=== PATIENT | male | born 1970 | race Two or more races ===

== ENCOUNTER 2025-08-11 15:43 | Emergency (ER) | payer MEDICAID, OTHER ==
[~2025-08-11] VITALS: Ht 185.4 cm; Wt 115.0 kg
[2025-08-11 16:00] VITALS: PULSE 110; RESP 20; O2SAT 96
[2025-08-11] MEDS: SODIUM CHLORIDE 0.9% 1,000 ML IV ONE (16:15)
[2025-08-11 16:17] VITALS: TEMP 98.6
[2025-08-11 16:22] LABS: Urine Protein, UAD TRACE (Negative)
[2025-08-11 16:39] LABS: Hematocrit 47.1 % (41.0-53.0); Hemoglobin 15.7 g/dL (13.5-17.5); Mean Corpuscular Hemoglobin 29.2 pg (28.0-32.0); Mean Corpuscular Volume 87.7 fL (80.0-100.0); Nucleated Red Blood Cells % 0.0 %
[2025-08-11 16:55] LABS: Albumin 4.3 g/dL (3.2-4.8); Anion Gap 11 (5-15); BUN/Creatinine Ratio 12.4 (10.0-20.0); Bilirubin, Total 0.7 mg/dL (0.2-1.0); Blood Urea Nitrogen 17 mg/dL (9-23); Calcium 9.2 mg/dL (8.7-10.4); Carbon Dioxide 24 mmol/L (20-31); Glucose 84 mg/dL (74-106); Potassium 4.1 mmol/L (3.5-5.1); Sodium 144 mmol/L (136-145); Total Protein 7.4 g/dL (5.7-8.2)
[2025-08-11 16:56] LABS: Alanine Aminotransferase 44 U/L (7-40); Alkaline Phosphatase 123 U/L (46-116); Chloride 109 mmol/L (98-107); Lipase 54 U/L (12-53)
--- NOTE | 2025-08-11 17:40 | ED.PDOC ---
History of Present Illness HPI Comments 54 y/o obese M is BIBA for c/c of syncope. Per EMS personnel report, patient was outdoors hiking when he passed out after running out of water and forgetting to carry extra, earlier, today. Patient received fluids en route as he was airlifted and arrived hypotensive to ED. No further acute symptoms reported at this time. Patient was not altered and states good improvement of symptoms at time of evaluation. Patient was tachycardic at arrival. Chief Complaint: Syncope Time Seen by MD: 16:00 Reviewed Notes: Nurses Notes, Field Marketing Representative Notes, Medications, Allergies Allergies: Coded Allergies: NO KNOWN ALLERGIES (Unverified , 08/11/25) Information Source: Patient, Emergency Med Personnel Mode of Arrival: EMS Severity: Moderate Timing: Hours Duration: Since onset Prehospital treatment: 12 Lead EKG, Tax Lawyer, IVF Past Medical History PAST MEDICAL HISTORY: Denies Surgical History: Denies all surgeries Family History Family History: Reviewed,noncontributory to illness, No family hx of Cancer, No family hx of DM, No family hx of Heart esther, No family hx of HTN, No family hx ofKidney esther, No family hx of Liver esther, No family hx of Lung esther, No family hx of Stroke Social History Smoker: Non-Smoker Alcohol: Denies ETOH Use Drugs: Denies Drug Use Lives In: Home Constitutional: reports: fatigue; denies: chills, diaphoresis, fever, malaise, sweats, weakness, others EENTM: denies: blurred vision, double vision, ear bleeding, ear discharge, ear drainage, ear pain, ear ringing, eye pain, eye redness, hearing loss, mouth pain, mouth swelling, nasal discharge, nose bleeding, nose congestion, nose pain, photophobia, tearing, throat pain, throat swelling, voice changes, others Respiratory: denies: cough, hemoptysis, orthopnea, SOB at rest, shortness of breath, SOB with excertion, stridor, wheezing, others Cardiovascular: denies: chest pain, dizzy spells, diaphoresis, Dyspnea on exertion, edema, irregular heart beat, left arm pain, lightheadedness, palpitations, PND, syncope, others Gastrointestinal: denies: abdomen distended, abdominal pain, blood streaked bowels, constipated, diarrhea, dysphagia, difficulty swallowing, hematemesis, melena, nausea, poor appetite, poor fluid intake, rectal bleeding, rectal pain, vomiting, others Genitourinary: denies: burning, dysuria, flank pain, frequency, hematuria, incontinence, penile discharge, penile sore, pain, testicle pain, testicle swelling, urgency, others Neurological: reports: fainting; denies: dizziness, headache, left sided numbness, left sided weakness, numbness, paresthesia, pre-existing deficit, right sided numbness, right sided weakness, seizure, speech problems, tingling, tremors, weakness, others Musculoskeletal: denies: back pain, gout, joint pain, joint swelling, muscle pain, muscle stiffness, neck pain, others Integumetry: denies: bruises, change in color, change in hair/nails, dryness, laceration, lesions, lumps, rash, wounds, others Allergic/Immunocompromised: denies: Difficulty Healing, Frequent Infections, Hives, Itching, others Hematologic/Lymphatic: denies: anemia, blood clots, easy bleeding, easy bruising, swollen glands, others Endocrine: denies: excessive hunger, excessive sweating, excessive thirst, excessive urination, flushing, intolerance to cold, intolerance to heat, unexplained weight gain, unexplained weight loss, others Psychiatric: denies: anxiety, bipolar disorder, depression, hopeless, panic disorder, schizophrenia, sleepless, suicidal, others All Other Systems: Reviewed and Negative (Comprehensive review of systems are negative unless stated in HPI) Physical Exam General Appearance: Mild Distress (Patient was only in moderate distress at time of evaluation. Patient states he feels much improved.), Normal HEENT: Normal ENT Inspection, Pharynx Normal, TMs Normal Neck: Full Range of Motion, Non-Tender, Normal, Normal Inspection Respiratory: Chest Non-Tender, Lungs Clear, No Accessory Muscle Use, No Respiratory Distress, Normal Breath Sounds Cardiovascular: No Edema, No JVD, No Murmur, No Gallop, Normal Peripheral Pulses, Regular Rate/Rhythm Breast Exam: Deferred Gastrointestinal: No Organomegaly, Non Tender, No Pulsatile Mass, Normal Bowel Sounds, Soft Genitalia: Deferred Pelvic: Deferred Rectal: Deferred Extremities: No calf tenderness, Normal capillary refill, Normal inspection, Normal range of motion, Non-tender, No pedal edema Neurologic: Alert, No Motor Deficits, Normal Affect, Normal Mood, No Sensory Deficits Cerebellar Function: NOT DONE Reflexes: NOT DONE Skin: Dry, Normal Color, Warm Lymphatic: No Adenopathy Was a procedure done? Was a procedure done?: No Differential Dx Considerations may include: Sepsis, UTI, dehydration, electrolyte imbalance, hypoxia, heat stroke, among others X-Ray, Labs, Meds, VS Vital Signs Date Time Temp Pulse Resp B/P (MAP) Pulse Ox O2 Delivery O2 Flow Rate FiO2 08/11/25 16:30 101 08/11/25 16:17 98.6 110 86 118/62 95 98.6 08/11/25 16:00 98.6 110 20 126/87 (100) 96 98.6 08/11/25 16:00 110 20 96 Room Air* 0 21 Lab Test 08/11/25 17:33 08/11/25 16:20 08/11/25 16:10 Range/Units Troponin I High Sensitivity 42 37 </=54 ng/L White Blood Count 15.8 H 4.4-10.8 10^3/uL Red Blood Count 5.37 4.5-5.90 10^6/uL Hemoglobin 15.7 13.5-17.5 g/dL Hematocrit 47.1 41.0-53.0 % Mean Corpuscular Volume 87.7 80.0-100.0 fL Mean Corpuscular Hemoglobin 29.2 28.0-32.0 pg Mean Corpuscular Hemoglobin Concent 33.3 32.0-36.0 g/dL Red Cell Distribution Width 13.5 11.8-14.3 % Platelet Count 250 140-450 10^3/uL Mean Platelet Volume 8.0 6.9-10.8 fL Neutrophils (%) (Auto) 84.8 H 37.0-80.0 % Lymphocytes (%) (Auto) 7.5 L 10.0-50.0 % Monocytes (%) (Auto) 7.5 0.0-12.0 % Eosinophils (%) (Auto) 0.1 0.0-7.0 % Basophils (%) (Auto) 0.1 0.0-2.0 % Neutrophils # (Auto) 13.4 H 1.6-8.6 10 ^3/uL Lymphocytes # (Auto) 1.2 0.4-5.4 10 ^3/uL Monocytes # (Auto) 1.2 0-1.3 10 ^3/uL Eosinophils # (Auto) 0 0-0.8 10 ^3/uL Basophils # (Auto) 0 0-0.2 10 ^3/uL Nucleated Red Blood Cells 0.0 % Sodium Level 144 136-145 mmol/L Potassium Level 4.1 3.5-5.1 mmol/L Chloride Level 109 H 98-107 mmol/L Carbon Dioxide Level 24 20-31 mmol/L Anion Gap 11 5-15 Blood Urea Nitrogen 17 9-23 mg/dL Creatinine 1.37 H 0.700-1.30 mg/dL Glomerular Filtration Rate Calc 62 >90 mL/min BUN/Creatinine Ratio 12.4 10.0-20.0 Serum Glucose 84 74-106 mg/dL Lactic Acid Level 1.6 0.4-2.0 mmol/L Calcium Level 9.2 8.7-10.4 mg/dL Total Bilirubin 0.7 0.2-1.0 mg/dL Aspartate Amino Transferase (AST) 31 13-40 U/L Alanine Aminotransferase (ALT) 44 H 7-40 U/L Alkaline Phosphatase 123 H 46-116 U/L B-Type Natriuretic Peptide 12.62 0-100 pg/mL Total Protein 7.4 5.7-8.2 g/dL Albumin 4.3 3.2-4.8 g/dL Lipase 54 H 12-53 U/L Urine Color Light-yellow Yellow Urine Clarity Clear Clear Urine pH 6.5 5.0-9.0 Urine Specific [place] 1.013 1.001-1.035 Urine Protein Trace H Negative Urine Ketones Trace Negative Urine Blood Negative Negative /uL Urine Nitrite Negative Negative Urine Bilirubin Negative Negative Urine Urobilinogen Normal Negative mg/dL Urine Leukocyte Esterase Negative Negative /uL Urine RBC 1 0 - 3 /hpf Urine Microscopic WBC 1 0-3 /HPF Urine Squamous Epithelial Cells Few <5 /hpf Urine Bacteria Few H None Seen /hpf Urine Hyaline Casts Few 0 - 2 /lpf Urine Mucus Few None Seen Urine Glucose Normal Normal mg/dL Current Medications Medications (Trade) Dose Ordered Sig/Kristin Route Start Time Stop Time Status Last Admin Sodium Chloride 1,000 ml @ 1,000 mls/hr Q1H ONCE IV 08/11/25 16:00 08/11/25 16:59 DC 08/11/25 16:15 X-Ray, Labs, Meds, VS Comment All studies performed in the ED were evaluated by me personally. Serum laboratories revealed a mild leukocytosis as well as a mildly elevated lipase. EKG revealed a sinus tachycardia with a rate of 101. MS interval of 152 and QT interval of 359. Patient is currently in good spirits and has been able to ambulate without concern. Patient will be discharged home and advised to hydrate well and eat good food for the next few days. Time of 1ST Reevaluation: 18:54 Reevaluation 1ST: Improved Consultation: PCP Patient Education/Counseling: Diagnosis, Treatment Family Education/Counseling: Diagnosis, Treatment, No Family Present SEPSIS Sepsis Screen Date sepsis recognized/suspect: Aug 11, 2025 Time Sepsis recognized/suspect: 1618 Recent Procedure: No On Antibiotic Therapy: No Respiratory Rate >20: Yes Heart Rate >90: Yes Temp<36 C (96.8 F) or >38.3 C: No SBP <90 or MAP <65 mmHG: No New Acute Mental Status Change: No Is the patient on CPAP, BIPAP,: No Physician Orders Troponin-I Hs (08/11/25 18:59) Electrocardigram (08/11/25 15:59) Continuous Ekg Monitoring 08,12,16,20,00,04 (08/11/25 15:59) Heplock Iv (08/11/25 ) Vital Signs Date Time Temp Pulse Resp B/P (MAP) Pulse Ox O2 Delivery O2 Flow Rate FiO2 08/11/25 16:30 101 08/11/25 16:17 98.6 110 86 118/62 95 98.6 08/11/25 16:00 98.6 110 20 126/87 (100) 96 98.6 08/11/25 16:00 110 20 96 Room Air* 0 21 Laboratory Tests Test 08/11/25 16:20 Lactic Acid Level 1.6 mmol/L (0.4-2.0) White Blood Count 15.8 10^3/uL (4.4-10.8) H Medications Medications Dose Ordered Sig/Kristin Route Start Time Stop Time Status Last Admin Dose Admin Sodium Chloride 1,000 ml @ 1,000 mls/hr Q1H ONCE IV 08/11/25 16:00 08/11/25 16:59 DC 08/11/25 16:15 Departure 1 Departure Time of Disposition: 18:55 Impression: Primary Impression: Dehydration after exertion Additional Impression: Metabolic encephalopathy Disposition: HOME / SELF CARE / HOMELESS Condition: Stable Additional Instructions: Advised patient hydrate well over the next few days as well as maintain a healthy and nutritious diet. Patient should follow up with his primary care provider in the next few days for re-evaluation. Discharged With: Self, Friend Critical Care Note Critical Care Time?: No Stability Stability form required: No Heart Score Heart Score: Heart Score Response (Comments) Value History Slightly Suspicious 0 EKG Normal 0 Age 45-64 1 Risk Factors 1 or 2 risk factors 1 Troponin Normal limit 0 Total 2 I personally scribed for CAREN MUSA PAC ([email or web address]) on 08/11/25 at 17:40. Electronically submitted by Paulo Mckeon ([email or web address]). ACREN MUSA PAC Aug 11, 2025 17:40
[2025-08-11 18:00] VITALS: BP 136/85; PULSE 93; RESP 24; O2SAT 97
--- NOTE | 2025-08-14 16:10 | ECG ---
[facility] Test Date: 2025-08-11 Test Time: 16:30:34 Pat Name: MUSTAPHA BURGESSDepartment: Room: Gender: Document Review Attorney: GERALDO : 1970 Requested By: CAREN MUSA Order Number: [id number] Reading MD: Leonel Parker Measurements Intervals [place] Rate: 101 P: 46 VT: 152 QRS: 18 QRSD: 86 T: 4 QT: 359 QTc: 466 Interpretive Statements Sinus tachycardia Electronically Signed On 08-14-2025 16:33:42 PDT by Leonel Parker Please click the below link to view image of tracing.
== END 2025-08-11 19:15 | disposition home or self-care (01) ==
LOC: EDBD 15:43 → ER 15:43
DX: E86.0 Dehydration (principal); G93.41 Metabolic encephalopathy; E66.9 Obesity, unspecified; Z68.33 Body mass index [BMI] 33.0-33.9, adult
CPT/HCPCS: 36415; 80053; 81001; 83605; 83690; 83880; 84484; 85025; 99284; J7030; 93005